=== PATIENT | male | born 1960 | race Caucasian/White ===

== ENCOUNTER 2019-04-24 18:24 | Emergency (ER) | payer BC ==
[~2019-04-24] VITALS: Ht 182.9 cm; Wt 111.0 kg
[2019-04-24] MEDS ORDERED: LIDOCAINE HCL 1% 20ML VIAL (Pyxis) INJ INFIL ONE (21:00)
[2019-04-24] MEDS ORDERED: DOXYCYCLINE HYCLATE 100MG CAPSULE PO ONE (21:15)
[2019-04-24] MEDS ORDERED: IBUPROFEN 600MG TABLET PO ONE (21:15)
[2019-04-24 21:33] VITALS: BP 159/79
== END 2019-04-24 21:33 | disposition home or self-care (01) ==
LOC: ER 18:24
DX: L02.415 Cutaneous abscess of right lower limb (principal); L01.00 Impetigo, unspecified; I10 Essential (primary) hypertension
CPT/HCPCS: 99283; J3490

== ENCOUNTER 2019-04-26 19:18 | Emergency (ER) | payer BC ==
[~2019-04-26] VITALS: Ht 182.9 cm; Wt 109.0 kg
[2019-04-26 19:38] VITALS: BP 170/81
== END 2019-04-27 01:24 | disposition left against medical advice (07) ==
LOC: ER 19:18
DX: Z53.21 Procedure and treatment not carried out due to patient leaving prior to being seen by health care provider (principal)